=== PATIENT | male | born 1945 | race Two or more races ===

== ENCOUNTER 2021-10-15 10:27 | Inpatient (IN) | payer MEDICARE, MEDICAID ==
[~2021-10-15] VITALS: Ht 175.3 cm; Wt 86.2 kg
[~2021-10-15 10:27] MED LIST: INSULIN LISPRO (MEDIUM DOSE) 100 UNITS/ML SUBCUT SCH
[2021-10-15] MEDS ORDERED: HYDROCODONE/ACETAMINOPHEN 5/325MG TABLET PO STA (10:58)
[2021-10-15] MEDS ORDERED: KETOROLAC 30MG/ML VIAL IV STA (10:58)
[2021-10-15] MEDS ORDERED: SODIUM CHLORIDE 0.9% 1,000 ML IV ONE (11:00)
[2021-10-15] MEDS ORDERED: DEXAMETHASONE 10 MG/ML VIAL IV ONE (11:15)
[2021-10-15 11:45] LABS: CHLORIDE 103 mEq/L (98-107)
[2021-10-15 11:49] LABS: BASOPHILS % 0.1 % (0.0-2.0); EOSINOPHILS % 0.3 % (0.0-5.0); HEMATOCRIT. 40.5 % (42.0-52.0); HEMOGLOBIN. 12.6 g/dL (14.0-18.0); LYMPHOCYTES % 19.1 % (20.0-50.0); MEAN CORPUSCULAR HEMOGLOBIN 25.2 pg (28.0-32.0); MEAN PLATELET VOLUME 10.3 fl (7.4-10.4); MONOCYTES % 7.5 % (2.0-8.0); PLATELET 342 x1000/uL (130-400)
[2021-10-15 11:55] LABS: BETA HYDROXYBUTYRATE 3.7 mMol/L (0.0-0.3)
[2021-10-15] MEDS ORDERED: ACETAMINOPHEN 325MG TABLET PO ONE (12:00)
[2021-10-15 12:12] LABS: PHOSPHORUS 2.8 mg/dL (2.5-4.9)
[2021-10-15 12:54] LABS: BG BASE EXCESS -5.3 mmol/L (-2.0-2.0); BG CARBOXYHEMOGLOBIN 0.9 % (0.5-1.5); BG DEOXYHEMOGLOBIN 1.7 % (0.0-5.0); BG FRACTION INSPIRED OXYGEN 28; BG HCO3 ACT 19.3 mmol/L (22.0-26.0); BG METHEMOGLOBIN 0.3 % (0.0-1.5); BG OXYGEN SATURATION 98.3 % (92.0-98.5); BG OXYHEMOGLOBIN 97.1 % (94.0-97.0); BG PCO2 34.3 mmHg (35.0-45.0); BG PH 7.367 (7.350-7.450); BG PO2 117.2 mmHg (75.0-100.0); BG SAMPLE SITE RIGHT RADIAL; BG TOTAL HEMOGLOBIN 12.4 g/dL (12.0-18.0); BG VENT MODE NASAL CANNULA
[2021-10-15] MEDS ORDERED: DILTIAZEM HCL 5MG/ML 5ML VIAL IV ONE ×2 (13:45→15:00)
[2021-10-15 15:19] LABS: CLARITY URINE CLEAR (CLEAR); COLOR URINE YELLOW (YELLOW); KETONES URINE 1+ (NEGATIVE); LEUKOCYTE ESTERASE URINE NEGATIVE (NEGATIVE); NITRITE URINE NEGATIVE (NEGATIVE); OCCULT BLOOD URINE TRACE (NEGATIVE); PROTEIN URINE TRACE (NEGATIVE); SPECIFIC GRAVITY URINE 1.033 (1.005-1.030); UROBILINOGEN URINE 0.2 E.U./dL (0.2-1.0)
[2021-10-15] MEDS ORDERED: DILTIAZEM HCL 30MG TABLET PO ONE (16:30)
[2021-10-15] MEDS ORDERED: LORAZEPAM 2MG/ML CPJ IV PRN (21:00)
[2021-10-15] MEDS ORDERED: ONDANSETRON HCL 4MG/2ML INJ IV PRN (21:00)
[2021-10-15] MEDS ORDERED: ENOXAPARIN 40MG/0.4ML SYR SUBCUT SCH (21:00)
[2021-10-15] MEDS ORDERED: HYDROCODONE/ACETAMINOPHEN 5/325MG TABLET PO PRN (21:00)
[2021-10-15] MEDS ORDERED: MORPHINE SULFATE 2 MG/ML CPJ (NOT FOR IM USE) IV PRN (21:00)
[2021-10-15] MEDS ORDERED: AZITHROMYCIN 500MG/250ML 250 ML IV SCH (21:03)
[2021-10-15] MEDS ORDERED: CEFTRIAXONE 1 G PREMIX 50 ML IV SCH (21:04)
[2021-10-15] MEDS: SODIUM CHLORIDE 0.9% 1,000 ML IV SCH (21:15)
[2021-10-15] MEDS ORDERED: DILTIAZEM HCL 5MG/ML 5ML VIAL IV NR (21:45)
[2021-10-15] MEDS ORDERED: INSULIN LISPRO (MEDIUM DOSE) 100 UNITS/ML SUBCUT SCH (22:00)
[2021-10-15] MEDS ORDERED: DEXTROSE 50% WATER 50ML SYRINGE IV PRN ×2 (22:15→22:30)
[2021-10-15] MEDS: INSULIN LISPRO (MEDIUM DOSE) 100 UNITS/ML SUBCUT SCH (22:43)
[2021-10-16] MEDS ORDERED: INSULIN LISPRO 100 UNITS/ML SUBCUT NR (00:05)
[2021-10-16] MEDS ORDERED: DILTIAZEM HCL 125 MG in DEXTROSE 5% WATER 125 ML IV PRN (02:45)
[2021-10-16] MEDS ORDERED: SODIUM CHLORIDE 0.9% 1,000 ML IV SCH (07:45)
[2021-10-16] MEDS ORDERED: DILTIAZEM HCL 60MG TABLET PO SCH (08:00)
[2021-10-16] MEDS: BLOOD SUGAR DIAGNOSTIC STRIP TEST SCH ×4 (09:00→20:27)
[2021-10-16] MEDS: INSULIN LISPRO (MEDIUM DOSE) 100 UNITS/ML SUBCUT SCH ×4 (09:00→21:00)
[2021-10-16 10:05] LABS: *AMPHETAMINES SCREEN URINE NEGATIVE (NEGATIVE); *BARBITURATES SCREEN URINE NEGATIVE (NEGATIVE); *BENZODIAZEPINES SCREEN URINE NEGATIVE (NEGATIVE); *COCAINE SCREEN URINE NEGATIVE (NEGATIVE)
[2021-10-16 10:06] LABS: CANNABINOID URINE SCREEN NEGATIVE (NEGATIVE); METHADONE URINE SCREEN NEGATIVE (NEGATIVE); OPIATES URINE SCREEN PRESUMTIVE POSITIVE (NEGATIVE); PHENCYCLIDINE URINE SCREEN NEGATIVE (NEGATIVE)
[2021-10-16] MEDS: INSULIN LISPRO 100 UNITS/ML SUBCUT SCH ×3 (11:55→20:02)
[2021-10-16] MEDS ORDERED: NALOXONE HCL 0.4MG/ML VIAL IV PRN (12:45)
[2021-10-16] MEDS ORDERED: INSULIN GLARGINE UD 100 UNITS/ML SYR SUBCUT NR (13:30)
[2021-10-16] MEDS: DILTIAZEM HCL 30MG TABLET PO SCH ×2 (17:14→21:00)
[2021-10-16] MEDS: SODIUM CHLORIDE 0.9% 1,000 ML IV SCH (17:50)
[2021-10-16] MEDS ORDERED: CEFTRIAXONE 1,000 MG in DEXTROSE 5% WATER 50 ML IV SCH (20:00)
[2021-10-16 20:05] LABS: CHLORIDE 109 mEq/L (98-107)
[2021-10-16] MEDS: CEFTRIAXONE 1,000 MG in DEXTROSE 5% WATER 50 ML IV SCH (21:00)
[2021-10-16] MEDS ORDERED: AZITHROMYCIN 500 MG in DEXT 5% WATER 250 ML IV SCH (21:00)
[2021-10-16] MEDS: AZITHROMYCIN 500 MG in DEXT 5% WATER 250 ML IV SCH (21:00)
[2021-10-16] MEDS ORDERED: INSULIN GLARGINE UD 100 UNITS/ML SYR SUBCUT SCH (22:00)
[2021-10-17] VITALS (30 sets, daily range): BP systolic 74–163; BP diastolic 20–96
[2021-10-17] MEDS: BLOOD SUGAR DIAGNOSTIC STRIP TEST SCH ×4 (03:51→21:34)
[2021-10-17 06:30] LABS: BASOPHILS % 0.3 % (0.0-2.0); EOSINOPHILS % 0.3 % (0.0-5.0); HEMATOCRIT. 33.3 % (42.0-52.0); HEMOGLOBIN. 10.3 g/dL (14.0-18.0); LYMPHOCYTES % 31.3 % (20.0-50.0); MEAN CORPUSCULAR VOLUME 80.8 fL (80.0-94.0); MEAN PLATELET VOLUME 9.6 fl (7.4-10.4); MONOCYTES % 7.4 % (2.0-8.0); NEUTROPHILS % 60.7 % (40.0-76.0); PLATELET 358 x1000/uL (130-400); RED BLOOD CELL COUNT 4.12 mill/uL (4.7-6.1)
[2021-10-17] MEDS: INSULIN LISPRO 100 UNITS/ML SUBCUT SCH ×3 (06:30→17:19)
[2021-10-17] MEDS: INSULIN LISPRO (MEDIUM DOSE) 100 UNITS/ML SUBCUT SCH ×4 (07:08→21:00)
[2021-10-17 07:11] LABS: CHLORIDE 112 mEq/L (98-107)
[2021-10-17 07:23] LABS: CREATINE KINASE 150 IU/L (39-308)
[2021-10-17 07:26] LABS: CREATINE KINASE MB FRACTION 3.7 ng/mL (0.5-3.6)
[2021-10-17] MEDS ORDERED: DIGOXIN 500MCG/2ML AMP IV SCH (07:30)
[2021-10-17] MEDS: DILTIAZEM HCL 30MG TABLET PO SCH ×3 (10:00→17:17)
[2021-10-17] MEDS: INSULIN GLARGINE UD 100 UNITS/ML SYR SUBCUT SCH ×2 (10:00→23:08)
[2021-10-17] MEDS ORDERED: DIGOXIN 500MCG/2ML AMP IV NR (11:02)
[2021-10-17] MEDS ORDERED: PHENYLEPHRINE 50 MG in DEXT 5% WATER 245 ML IV PRN (11:30)
[2021-10-17] MEDS ORDERED: VANCOMYCIN 1 G PREMIX 200 ML IV SCH (12:30)
[2021-10-17] MEDS: SODIUM CHLORIDE 0.9% 1,000 ML IV SCH (13:30)
[2021-10-17] MEDS: MIDODRINE HCL 5MG TABLET PO SCH ×2 (14:30→17:17)
[2021-10-17] MEDS ORDERED: DILTIAZEM HCL 5MG/ML 5ML VIAL IV NR (14:37)
[2021-10-17] MEDS ORDERED: DILTIAZEM HCL 125 MG in DEXT 5% WATER 100 ML IV PRN (15:00)
[2021-10-17] MEDS ORDERED: GUAIFENESIN-DM 200MG-20MG/10ML UDC PO PRN (19:00)
[2021-10-17 19:03] LABS: HEMATOCRIT 33.4 % (42.0-52.0); HEMOGLOBIN 10.5 g/dL (14.0-18.0); MEAN CORPUSCULAR HEMOGLOBIN 25.5 pg (28.0-32.0); MEAN CORPUSCULAR VOLUME 80.8 fL (80.0-94.0); PLATELET 383 x1000/uL (130-400); RED BLOOD CELL COUNT 4.13 mill/uL (4.7-6.1); RED CELL DISTRIBUTION WIDTH 18.8 % (11.6-14.6)
[2021-10-17 19:12] LABS: INR 1.1
[2021-10-17] MEDS: ENOXAPARIN 60MG/0.6ML SYR SUBCUT SCH (21:34)
[2021-10-17] MEDS: CEFTRIAXONE 1,000 MG in DEXTROSE 5% WATER 50 ML IV SCH (22:32)
[2021-10-17] MEDS: VANCOMYCIN 750 MG PREMIX 150 ML IV SCH (23:24)
[2021-10-18] VITALS (82 sets, daily range): BP systolic 61–150; BP diastolic 29–110
[2021-10-18] MEDS ORDERED: DILTIAZEM HCL 60MG TABLET PO SCH
[2021-10-18] MEDS: AZITHROMYCIN 500 MG in DEXT 5% WATER 250 ML IV SCH ×2 (00:58→21:44)
[2021-10-18] MEDS ORDERED: IOHEXOL-350 100 ML BOTTLE ONE (04:24)
[2021-10-18] MEDS: BLOOD SUGAR DIAGNOSTIC STRIP TEST SCH ×4 (06:20→21:44)
[2021-10-18] MEDS: INSULIN LISPRO 100 UNITS/ML SUBCUT SCH (06:21)
[2021-10-18] MEDS: INSULIN LISPRO (MEDIUM DOSE) 100 UNITS/ML SUBCUT SCH ×4 (06:21→21:59)
[2021-10-18 06:28] LABS: BASOPHILS % 0.4 % (0.0-2.0); EOSINOPHILS % 1.2 % (0.0-5.0); HEMATOCRIT. 35.5 % (42.0-52.0); HEMOGLOBIN. 10.6 g/dL (14.0-18.0); LYMPHOCYTES % 20.4 % (20.0-50.0); MEAN CORPUSCULAR HEMOGLOBIN 24.2 pg (28.0-32.0); MONOCYTES % 8.3 % (2.0-8.0); NEUTROPHILS % 69.7 % (40.0-76.0); PLATELET 358 x1000/uL (130-400); RED BLOOD CELL COUNT 4.39 mill/uL (4.7-6.1); RED CELL DISTRIBUTION WIDTH 18.7 % (11.6-14.6)
[2021-10-18 07:16] LABS: CHLORIDE 106 mEq/L (98-107)
[2021-10-18 07:43] LABS: DIGOXIN 0.6 ng/mL (0.9-2.0)
[2021-10-18] MEDS: ENOXAPARIN 60MG/0.6ML SYR SUBCUT SCH ×2 (08:42→20:43)
[2021-10-18] MEDS: DEXAMETHASONE 10 MG/ML VIAL IV SCH (08:42)
[2021-10-18] MEDS: SODIUM CHLORIDE 0.9% 1,000 ML IV SCH (08:46)
[2021-10-18] MEDS: MIDODRINE HCL 5MG TABLET PO SCH ×3 (08:46→22:06)
[2021-10-18] MEDS: INSULIN GLARGINE UD 100 UNITS/ML SYR SUBCUT SCH ×3 (09:53→22:02)
[2021-10-18] MEDS: VANCOMYCIN 750 MG PREMIX 150 ML IV SCH (10:17)
[2021-10-18] MEDS: DILTIAZEM HCL 90MG TABLET PO SCH ×2 (12:24→17:04)
[2021-10-18 18:36] LABS: HEMATOCRIT 34.6 % (42.0-52.0); MEAN CORPUSCULAR VOLUME 82.1 fL (80.0-94.0); PLATELET 387 x1000/uL (130-400); RED BLOOD CELL COUNT 4.21 mill/uL (4.7-6.1); RED CELL DISTRIBUTION WIDTH 18.8 % (11.6-14.6)
[2021-10-18] MEDS: CEFTRIAXONE 1,000 MG in DEXTROSE 5% WATER 50 ML IV SCH (20:43)
[2021-10-19] VITALS (53 sets, daily range): BP systolic 76–153; BP diastolic 44–101
[2021-10-19] MEDS: BLOOD SUGAR DIAGNOSTIC STRIP TEST SCH ×4 (05:56→20:30)
[2021-10-19] MEDS: SODIUM CHLORIDE 0.9% 1,000 ML IV SCH (06:13)
[2021-10-19 06:15] LABS: BASOPHILS % 0.3 % (0.0-2.0); EOSINOPHILS % 0.1 % (0.0-5.0); HEMATOCRIT. 30.4 % (42.0-52.0); HEMOGLOBIN. 9.8 g/dL (14.0-18.0); LYMPHOCYTES % 11.3 % (20.0-50.0); MEAN CORPUSCULAR VOLUME 80.6 fL (80.0-94.0); MONOCYTES % 6.8 % (2.0-8.0); NEUTROPHILS % 81.5 % (40.0-76.0); RED BLOOD CELL COUNT 3.77 mill/uL (4.7-6.1); RED CELL DISTRIBUTION WIDTH 18.5 % (11.6-14.6)
[2021-10-19] MEDS: DILTIAZEM HCL 90MG TABLET PO SCH ×4 (06:15→18:53)
[2021-10-19] MEDS: MIDODRINE HCL 5MG TABLET PO SCH ×3 (06:15→18:53)
[2021-10-19] MEDS: INSULIN LISPRO (MEDIUM DOSE) 100 UNITS/ML SUBCUT SCH ×4 (06:19→20:33)
[2021-10-19 06:20] LABS: CHLORIDE 108 mEq/L (98-107)
[2021-10-19] MEDS: ENOXAPARIN 60MG/0.6ML SYR SUBCUT SCH ×2 (09:22→20:32)
[2021-10-19] MEDS: DEXAMETHASONE 10 MG/ML VIAL IV SCH (09:23)
[2021-10-19] MEDS: INSULIN GLARGINE UD 100 UNITS/ML SYR SUBCUT SCH ×2 (11:14→22:16)
[2021-10-19] MEDS: DIGOXIN 500MCG/2ML AMP IV SCH (18:54)
[2021-10-19 19:47] LABS: HEMATOCRIT 34.9 % (42.0-52.0); HEMOGLOBIN 10.7 g/dL (14.0-18.0); MEAN CORPUSCULAR HEMOGLOBIN 25.6 pg (28.0-32.0); MEAN CORPUSCULAR VOLUME 83.2 fL (80.0-94.0); PLATELET 401 x1000/uL (130-400); RED BLOOD CELL COUNT 4.19 mill/uL (4.7-6.1)
[2021-10-19] MEDS ORDERED: METOPROLOL TARTRATE 25MG TABLET PO SCH (21:00)
[2021-10-19] MEDS: CEFTRIAXONE 1,000 MG in DEXTROSE 5% WATER 50 ML IV SCH (21:23)
[2021-10-19] MEDS ORDERED: INSULIN GLARGINE UD 100 UNITS/ML SYR SUBCUT SCH (22:00)
[2021-10-19] MEDS: AZITHROMYCIN 500 MG in DEXT 5% WATER 250 ML IV SCH (22:16)
[2021-10-20] VITALS: BP 107/64
[2021-10-20] MEDS: MIDODRINE HCL 5MG TABLET PO SCH ×5 (00:55→23:25)
[2021-10-20] MEDS: SODIUM CHLORIDE 0.9% 1,000 ML IV SCH ×2 (00:57→21:24)
[2021-10-20 04:00] VITALS: BP 120/68
[2021-10-20] MEDS: DILTIAZEM HCL 90MG TABLET PO SCH ×5 (05:32→23:22)
[2021-10-20 08:00] VITALS: BP 119/65
[2021-10-20] MEDS: ENOXAPARIN 60MG/0.6ML SYR SUBCUT SCH ×2 (08:06→21:22)
[2021-10-20] MEDS: DEXAMETHASONE 10 MG/ML VIAL IV SCH (08:07)
[2021-10-20] MEDS: INSULIN LISPRO (MEDIUM DOSE) 100 UNITS/ML SUBCUT SCH ×4 (08:07→21:22)
[2021-10-20] MEDS: INSULIN GLARGINE UD 100 UNITS/ML SYR SUBCUT SCH ×2 (10:41→21:23)
[2021-10-20 12:00] VITALS: BP 119/63
[2021-10-20 13:25] LABS: BASOPHILS % 0.5 % (0.0-2.0); HEMATOCRIT. 33.2 % (42.0-52.0); HEMOGLOBIN. 10.3 g/dL (14.0-18.0); LYMPHOCYTES % 8.8 % (20.0-50.0); MEAN CORPUSCULAR VOLUME 80.4 fL (80.0-94.0); MEAN PLATELET VOLUME 9.4 fl (7.4-10.4); MONOCYTES % 2.7 % (2.0-8.0); PLATELET 490 x1000/uL (130-400); RED BLOOD CELL COUNT 4.13 mill/uL (4.7-6.1); RED CELL DISTRIBUTION WIDTH 18.3 % (11.6-14.6)
[2021-10-20 13:39] LABS: CHLORIDE 105 mEq/L (98-107)
[2021-10-20 14:00] LABS: DIGOXIN 0.7 ng/mL (0.9-2.0)
[2021-10-20 16:00] VITALS: BP 103/55
[2021-10-20] MEDS: DIGOXIN 500MCG/2ML AMP IV SCH (17:13)
[2021-10-20] MEDS ORDERED: DILT300C35 MT ×2 (18:01)
[2021-10-20] MEDS ORDERED: APIX5TAB MT (18:01)
[2021-10-20] MEDS ORDERED: INSU100I28 SQ (18:01)
[2021-10-20 20:00] VITALS: BP 120/60
[2021-10-21] VITALS: BP 102/50
[2021-10-21 04:00] VITALS: BP 135/77
[2021-10-21] MEDS: DILTIAZEM HCL 90MG TABLET PO SCH (06:00)
[2021-10-21] MEDS: MIDODRINE HCL 5MG TABLET PO SCH ×3 (06:00→17:58)
[2021-10-21] MEDS: INSULIN LISPRO (MEDIUM DOSE) 100 UNITS/ML SUBCUT SCH ×4 (07:40→21:24)
[2021-10-21 08:00] VITALS: BP 148/81
[2021-10-21] MEDS: DEXAMETHASONE 10 MG/ML VIAL IV SCH (08:36)
[2021-10-21] MEDS: ENOXAPARIN 60MG/0.6ML SYR SUBCUT SCH ×2 (08:36→21:25)
[2021-10-21] MEDS: INSULIN GLARGINE UD 100 UNITS/ML SYR SUBCUT SCH ×2 (09:37→21:25)
[2021-10-21 12:00] VITALS: BP 124/75
[2021-10-21] MEDS: DILTIAZEM HCL 60MG TABLET PO SCH ×2 (12:45→17:58)
[2021-10-21 16:00] VITALS: BP 122/60
[2021-10-21] MEDS: SODIUM CHLORIDE 0.9% 1,000 ML IV SCH (17:55)
[2021-10-21] MEDS: DIGOXIN 500MCG/2ML AMP IV SCH (17:58)
[2021-10-21 20:00] VITALS: BP 126/71
[2021-10-22] VITALS: BP 115/60
[2021-10-22] MEDS: MIDODRINE HCL 5MG TABLET PO SCH ×4 (00:22→18:14)
[2021-10-22] MEDS: DILTIAZEM HCL 60MG TABLET PO SCH ×3 (00:22→13:09)
[2021-10-22 04:00] VITALS: BP 124/64
[2021-10-22] MEDS: INSULIN LISPRO (MEDIUM DOSE) 100 UNITS/ML SUBCUT SCH ×5 (07:27→22:17)
[2021-10-22 08:00] VITALS: BP 104/63
[2021-10-22] MEDS: ENOXAPARIN 60MG/0.6ML SYR SUBCUT SCH (08:54)
[2021-10-22] MEDS: DEXAMETHASONE 10 MG/ML VIAL IV SCH (08:55)
[2021-10-22] MEDS: INSULIN GLARGINE UD 100 UNITS/ML SYR SUBCUT SCH ×2 (10:50→22:18)
[2021-10-22 12:00] VITALS: BP 117/75
[2021-10-22 16:00] VITALS: BP 118/58
[2021-10-22] MEDS: SODIUM CHLORIDE 0.9% 1,000 ML IV SCH (18:19)
[2021-10-22 20:00] VITALS: BP 126/79
[2021-10-22] MEDS: ENOXAPARIN 100MG/ML SYR SUBCUT SCH (22:16)
[2021-10-23] VITALS: BP 141/57
[2021-10-23 04:00] VITALS: BP 107/56
[2021-10-23] MEDS: MIDODRINE HCL 5MG TABLET PO SCH ×4 (04:58→18:00)
[2021-10-23] MEDS: INSULIN LISPRO (MEDIUM DOSE) 100 UNITS/ML SUBCUT SCH ×4 (07:40→21:34)
[2021-10-23 08:00] VITALS: BP 108/55
[2021-10-23] MEDS: INSULIN GLARGINE UD 100 UNITS/ML SYR SUBCUT SCH ×2 (10:00→22:34)
[2021-10-23 12:00] VITALS: BP 134/84
[2021-10-23 13:17] LABS: CHLORIDE 106 mEq/L (98-107)
[2021-10-23] MEDS: DEXAMETHASONE 10 MG/ML VIAL IV SCH (13:39)
[2021-10-23] MEDS: ENOXAPARIN 100MG/ML SYR SUBCUT SCH ×2 (13:40→20:47)
[2021-10-23] MEDS: SODIUM CHLORIDE 0.9% 1,000 ML IV SCH (13:41)
[2021-10-23 16:00] VITALS: BP 135/81
[2021-10-23 20:00] VITALS: BP 117/65
[2021-10-24] VITALS: BP 125/71
[2021-10-24] MEDS: MIDODRINE HCL 5MG TABLET PO SCH ×4 (00:18→17:57)
[2021-10-24 04:00] VITALS: BP 91/58
[2021-10-24] MEDS: SODIUM CHLORIDE 0.9% 1,000 ML IV SCH (05:19)
[2021-10-24] MEDS: INSULIN LISPRO (MEDIUM DOSE) 100 UNITS/ML SUBCUT SCH ×3 (05:41→21:24)
[2021-10-24 08:00] VITALS: BP 117/67
[2021-10-24 08:13] LABS: CHLORIDE 107 mEq/L (98-107)
[2021-10-24 08:25] LABS: BASOPHILS % 0.1 % (0.0-2.0); EOSINOPHILS % 0.2 % (0.0-5.0); HEMATOCRIT. 34.4 % (42.0-52.0); LYMPHOCYTES % 27.4 % (20.0-50.0); MEAN CORPUSCULAR HEMOGLOBIN 25.8 pg (28.0-32.0); MEAN CORPUSCULAR VOLUME 80.7 fL (80.0-94.0); MEAN PLATELET VOLUME 9.2 fl (7.4-10.4); MONOCYTES % 11.9 % (2.0-8.0); NEUTROPHILS % 60.4 % (40.0-76.0); PLATELET 443 x1000/uL (130-400); RED BLOOD CELL COUNT 4.26 mill/uL (4.7-6.1); RED CELL DISTRIBUTION WIDTH 18.1 % (11.6-14.6)
[2021-10-24] MEDS: DEXAMETHASONE 10 MG/ML VIAL IV SCH (09:46)
[2021-10-24] MEDS: ENOXAPARIN 100MG/ML SYR SUBCUT SCH ×2 (09:47→21:23)
[2021-10-24] MEDS: INSULIN GLARGINE UD 100 UNITS/ML SYR SUBCUT SCH ×3 (09:49→22:06)
[2021-10-24 12:00] VITALS: BP 117/78
[2021-10-24 16:00] VITALS: BP 132/84
[2021-10-24] MEDS ORDERED: SOTALOL HCL 80MG TABLET PO NR (18:30)
[2021-10-24 20:00] VITALS: BP 109/73
[2021-10-24] MEDS: GABAPENTIN 100MG CAPSULE PO SCH (22:05)
[2021-10-25] VITALS: BP 110/63
[2021-10-25] MEDS: MIDODRINE HCL 5MG TABLET PO SCH ×4 (00:17→17:22)
[2021-10-25] MEDS ORDERED: SOTALOL HCL 80MG TABLET PO NR ×2 (02:30→10:30)
[2021-10-25] MEDS: ACETAMINOPHEN 650MG/20.3ML UDC GT PRN (02:53)
[2021-10-25] MEDS: SODIUM CHLORIDE 0.9% 1,000 ML IV SCH ×2 (02:55→20:35)
[2021-10-25 04:00] VITALS: BP 128/65
[2021-10-25] MEDS: GABAPENTIN 100MG CAPSULE PO SCH ×3 (06:00→20:30)
[2021-10-25] MEDS: INSULIN LISPRO (MEDIUM DOSE) 100 UNITS/ML SUBCUT SCH ×4 (06:07→20:34)
[2021-10-25 08:00] VITALS: BP 95/49
[2021-10-25] MEDS: INSULIN GLARGINE UD 100 UNITS/ML SYR SUBCUT SCH ×2 (10:00→22:21)
[2021-10-25] MEDS: DEXAMETHASONE 10 MG/ML VIAL IV SCH (10:18)
[2021-10-25] MEDS: ENOXAPARIN 100MG/ML SYR SUBCUT SCH (10:18)
[2021-10-25] MEDS: SOTALOL HCL 80MG TABLET PO SCH ×2 (10:30→20:30)
[2021-10-25 12:14] VITALS: BP 90/46
[2021-10-25 16:00] VITALS: BP 107/46
[2021-10-25 20:00] VITALS: BP 95/42
[2021-10-25] MEDS: APIXABAN 5 MG TABLET PO SCH (20:30)
[2021-10-26 00:05] VITALS: BP 113/53
[2021-10-26] MEDS: MIDODRINE HCL 5MG TABLET PO SCH ×5 (00:11→23:59)
[2021-10-26 04:00] VITALS: BP 98/46
[2021-10-26] MEDS: GABAPENTIN 100MG CAPSULE PO SCH ×3 (05:52→21:21)
[2021-10-26] MEDS: INSULIN LISPRO (MEDIUM DOSE) 100 UNITS/ML SUBCUT SCH ×4 (05:55→21:00)
[2021-10-26 07:56] VITALS: BP 108/70
[2021-10-26] MEDS: APIXABAN 5 MG TABLET PO SCH ×2 (08:12→21:21)
[2021-10-26] MEDS: DEXAMETHASONE 10 MG/ML VIAL IV SCH (08:14)
[2021-10-26] MEDS: SOTALOL HCL 80MG TABLET PO SCH ×2 (08:14→21:00)
[2021-10-26] MEDS: INSULIN GLARGINE UD 100 UNITS/ML SYR SUBCUT SCH ×2 (09:45→21:30)
[2021-10-26 12:00] VITALS: BP 130/61
[2021-10-26 16:20] VITALS: BP 106/60
[2021-10-26] MEDS: SODIUM CHLORIDE 0.9% 1,000 ML IV SCH (17:15)
[2021-10-26 20:02] VITALS: BP 105/51
[2021-10-27 00:05] VITALS: BP 100/50
[2021-10-27 04:00] VITALS: BP 116/46
[2021-10-27] MEDS: GABAPENTIN 100MG CAPSULE PO SCH ×3 (05:41→21:08)
[2021-10-27] MEDS: MIDODRINE HCL 5MG TABLET PO SCH ×3 (05:41→17:08)
[2021-10-27] MEDS: INSULIN LISPRO (MEDIUM DOSE) 100 UNITS/ML SUBCUT SCH ×4 (05:44→21:09)
[2021-10-27 07:29] VITALS: BP 128/55
[2021-10-27] MEDS: DEXAMETHASONE 10 MG/ML VIAL IV SCH (08:10)
[2021-10-27] MEDS: SOTALOL HCL 80MG TABLET PO SCH ×2 (08:10→21:00)
[2021-10-27] MEDS: APIXABAN 5 MG TABLET PO SCH ×2 (08:31→21:08)
[2021-10-27] MEDS: INSULIN GLARGINE UD 100 UNITS/ML SYR SUBCUT SCH ×2 (09:53→21:18)
[2021-10-27] MEDS: SODIUM CHLORIDE 0.9% 1,000 ML IV SCH (11:34)
[2021-10-27 11:35] VITALS: BP 121/38
[2021-10-27 15:30] VITALS: BP 112/56
[2021-10-27 20:00] VITALS: BP 108/57
[2021-10-28] VITALS: BP 114/57
[2021-10-28 04:00] VITALS: BP 118/52
[2021-10-28] MEDS: MIDODRINE HCL 5MG TABLET PO SCH ×4 (06:00→17:09)
[2021-10-28] MEDS: GABAPENTIN 100MG CAPSULE PO SCH ×3 (06:12→20:12)
[2021-10-28 08:00] VITALS: BP 114/65
[2021-10-28] MEDS: APIXABAN 5 MG TABLET PO SCH ×2 (08:46→20:11)
[2021-10-28] MEDS: SOTALOL HCL 80MG TABLET PO SCH ×2 (08:51→20:06)
[2021-10-28] MEDS: INSULIN LISPRO (MEDIUM DOSE) 100 UNITS/ML SUBCUT SCH ×4 (08:56→20:12)
[2021-10-28] MEDS: DEXAMETHASONE 10 MG/ML VIAL IV SCH (08:58)
[2021-10-28] MEDS: SODIUM CHLORIDE 0.9% 1,000 ML IV SCH (09:02)
[2021-10-28 12:00] VITALS: BP 92/48
[2021-10-28] MEDS: INSULIN GLARGINE UD 100 UNITS/ML SYR SUBCUT SCH ×2 (12:36→20:59)
[2021-10-28 16:00] VITALS: BP 97/48
[2021-10-28 20:00] VITALS: BP 98/58
[2021-10-29] VITALS: BP 116/50
[2021-10-29 04:00] VITALS: BP 118/48
[2021-10-29] MEDS: MIDODRINE HCL 5MG TABLET PO SCH ×4 (06:00→20:16)
[2021-10-29] MEDS: SODIUM CHLORIDE 0.9% 1,000 ML IV SCH ×2 (06:00→16:06)
[2021-10-29] MEDS: GABAPENTIN 100MG CAPSULE PO SCH ×3 (06:52→20:10)
[2021-10-29 08:00] VITALS: BP 126/58
[2021-10-29] MEDS: DEXAMETHASONE 10 MG/ML VIAL IV SCH (08:06)
[2021-10-29] MEDS: SOTALOL HCL 80MG TABLET PO SCH ×2 (08:06→20:15)
[2021-10-29] MEDS: INSULIN LISPRO (MEDIUM DOSE) 100 UNITS/ML SUBCUT SCH ×4 (08:07→20:11)
[2021-10-29] MEDS: APIXABAN 5 MG TABLET PO SCH ×2 (08:14→20:10)
[2021-10-29] MEDS: INSULIN GLARGINE UD 100 UNITS/ML SYR SUBCUT SCH (11:34)
[2021-10-29] MEDS: ACETAMINOPHEN 650MG/20.3ML UDC GT PRN (11:39)
[2021-10-29 12:00] VITALS: BP 94/74
[2021-10-29 16:00] VITALS: BP 98/64
[2021-10-29 20:00] VITALS: BP 113/56
[2021-10-29] MEDS ORDERED: INSULIN GLARGINE UD 100 UNITS/ML SYR SUBCUT SCH (22:00)
[2021-10-30] VITALS: BP 102/50
[2021-10-30] MEDS: MIDODRINE HCL 5MG TABLET PO SCH ×3 (06:00→21:47)
[2021-10-30] MEDS: GABAPENTIN 100MG CAPSULE PO SCH ×3 (06:16→21:45)
[2021-10-30 07:02] LABS: BASOPHILS % 0.8 % (0.0-2.0); EOSINOPHILS % 0.6 % (0.0-5.0); HEMATOCRIT. 29.2 % (42.0-52.0); HEMOGLOBIN. 9.5 g/dL (14.0-18.0); LYMPHOCYTES % 25.6 % (20.0-50.0); MEAN CORPUSCULAR HEMOGLOBIN 26.7 pg (28.0-32.0); MEAN CORPUSCULAR VOLUME 82.1 fL (80.0-94.0); MEAN PLATELET VOLUME 9.9 fl (7.4-10.4); MONOCYTES % 6.5 % (2.0-8.0); NEUTROPHILS % 66.5 % (40.0-76.0); PLATELET 203 x1000/uL (130-400); RED BLOOD CELL COUNT 3.55 mill/uL (4.7-6.1); RED CELL DISTRIBUTION WIDTH 19.3 % (11.6-14.6)
[2021-10-30 07:15] LABS: CHLORIDE 105 mEq/L (98-107)
[2021-10-30 08:00] VITALS: BP 133/82
[2021-10-30] MEDS: INSULIN LISPRO (MEDIUM DOSE) 100 UNITS/ML SUBCUT SCH ×4 (08:10→21:45)
[2021-10-30] MEDS: APIXABAN 5 MG TABLET PO SCH ×2 (08:12→21:45)
[2021-10-30] MEDS: SOTALOL HCL 80MG TABLET PO SCH ×2 (08:12→21:00)
[2021-10-30] MEDS: DEXAMETHASONE 10 MG/ML VIAL IV SCH (08:13)
[2021-10-30] MEDS: ACETAMINOPHEN 650MG/20.3ML UDC GT PRN ×2 (11:52→21:57)
[2021-10-30 12:00] VITALS: BP 109/74
[2021-10-30] MEDS: INSULIN GLARGINE UD 100 UNITS/ML SYR SUBCUT SCH ×2 (12:05→21:46)
[2021-10-30 16:00] VITALS: BP 106/59
[2021-10-30] MEDS: SODIUM CHLORIDE 0.9% 1,000 ML IV SCH (19:13)
[2021-10-30 20:00] VITALS: BP 111/51
[2021-10-31] VITALS: BP 104/45
[2021-10-31 04:00] VITALS: BP 112/48
[2021-10-31] MEDS: MIDODRINE HCL 5MG TABLET PO SCH ×3 (06:00→21:31)
[2021-10-31] MEDS: GABAPENTIN 100MG CAPSULE PO SCH ×3 (06:29→21:38)
[2021-10-31] MEDS: INSULIN LISPRO (MEDIUM DOSE) 100 UNITS/ML SUBCUT SCH ×4 (07:55→21:34)
[2021-10-31 08:00] VITALS: BP 130/41
[2021-10-31] MEDS: SOTALOL HCL 80MG TABLET PO SCH ×2 (08:56→21:00)
[2021-10-31] MEDS: DEXAMETHASONE 10 MG/ML VIAL IV SCH (09:23)
[2021-10-31] MEDS: APIXABAN 5 MG TABLET PO SCH ×2 (09:23→21:37)
[2021-10-31] MEDS: INSULIN GLARGINE UD 100 UNITS/ML SYR SUBCUT SCH ×2 (09:40→21:35)
[2021-10-31 12:00] VITALS: BP 131/86
[2021-10-31 16:00] VITALS: BP 114/53
[2021-10-31] MEDS: SODIUM CHLORIDE 0.9% 1,000 ML IV SCH (16:15)
[2021-10-31 20:00] VITALS: BP 107/50
[2021-11-01] VITALS: BP 120/52
[2021-11-01] MEDS: ACETAMINOPHEN 650MG/20.3ML UDC GT PRN (03:48)
[2021-11-01 04:00] VITALS: BP 141/67
[2021-11-01] MEDS: MIDODRINE HCL 5MG TABLET PO SCH ×3 (05:52→21:24)
[2021-11-01] MEDS: GABAPENTIN 100MG CAPSULE PO SCH ×3 (06:08→21:23)
[2021-11-01 07:59] VITALS: BP 145/55
[2021-11-01] MEDS: DEXAMETHASONE 10 MG/ML VIAL IV SCH (08:16)
[2021-11-01] MEDS: APIXABAN 5 MG TABLET PO SCH ×2 (08:16→21:22)
[2021-11-01] MEDS: INSULIN LISPRO (MEDIUM DOSE) 100 UNITS/ML SUBCUT SCH ×4 (08:17→21:25)
[2021-11-01] MEDS: SOTALOL HCL 80MG TABLET PO SCH ×2 (08:18→21:00)
[2021-11-01 08:20] LABS: BASOPHILS % 0.3 % (0.0-2.0); EOSINOPHILS % 0.3 % (0.0-5.0); HEMATOCRIT. 31.8 % (42.0-52.0); HEMOGLOBIN. 10.2 g/dL (14.0-18.0); LYMPHOCYTES % 24.2 % (20.0-50.0); MEAN CORPUSCULAR HEMOGLOBIN 26.3 pg (28.0-32.0); MEAN CORPUSCULAR VOLUME 81.9 fL (80.0-94.0); MEAN PLATELET VOLUME 9.8 fl (7.4-10.4); MONOCYTES % 6.1 % (2.0-8.0); NEUTROPHILS % 69.1 % (40.0-76.0); PLATELET 201 x1000/uL (130-400); RED BLOOD CELL COUNT 3.89 mill/uL (4.7-6.1); RED CELL DISTRIBUTION WIDTH 19.6 % (11.6-14.6)
[2021-11-01 08:40] LABS: CHLORIDE 103 mEq/L (98-107)
[2021-11-01] MEDS: INSULIN GLARGINE UD 100 UNITS/ML SYR SUBCUT SCH ×2 (09:58→21:25)
[2021-11-01 12:03] VITALS: BP 137/61
[2021-11-01] MEDS ORDERED: ERGOCALCIFEROL 50000UNITS CAPSULE PO SCH (13:00)
[2021-11-01 15:45] VITALS: BP 142/63
[2021-11-01 20:00] VITALS: BP 118/49
[2021-11-02 04:00] VITALS: BP 142/65
[2021-11-02] MEDS: GABAPENTIN 100MG CAPSULE PO SCH (05:55)
[2021-11-02] MEDS: MIDODRINE HCL 5MG TABLET PO SCH (05:56)
[2021-11-02] MEDS: INSULIN LISPRO (MEDIUM DOSE) 100 UNITS/ML SUBCUT SCH (07:17)
[2021-11-02 07:53] VITALS: BP 141/42
[2021-11-02] MEDS: APIXABAN 5 MG TABLET PO SCH (08:31)
[2021-11-02] MEDS: DEXAMETHASONE 10 MG/ML VIAL IV SCH (08:31)
[2021-11-02] MEDS: SOTALOL HCL 80MG TABLET PO SCH (08:32)
[2021-11-02] MEDS ORDERED: MULTIVITAMINS,THER W-MINERALS TABLET PO SCH (09:00)
[2021-11-02 10:59] VITALS: BP 141/42
== END 2021-11-02 11:25 | disposition home or self-care (01) | DRG 871 ==
LOC: ER 10:27 → MICUSO 16:44 → ENRESERV 20:02 → CANRESERV 20:02 → SUPCPDRO 20:59 → ER 10-16 02:13 → EDBEDREQSVC 10-16 02:43 → MICUSO 10-17 17:05 → 7WST 10-19 17:45
PROVIDERS: ADMIT Internal Medicine Nephrology; ATTEND Internal Medicine Nephrology
PROC: 0BH17EZ Insertion of Endotracheal Airway into Trachea, Via Natural or Artificial Opening (ICD-10-PCS; principal; 2021-10-17)
PROC: 5A1935Z Respiratory Ventilation, Less than 24 Consecutive Hours (ICD-10-PCS; 2021-10-17)
DX: A41.89 Other specified sepsis (principal); U07.1 COVID-19; J12.82 Pneumonia due to coronavirus disease 2019; J96.01 Acute respiratory failure with hypoxia; N39.0 Urinary tract infection, site not specified; I48.92 Unspecified atrial flutter; J44.0 Chronic obstructive pulmonary disease with (acute) lower respiratory infection; I48.20 Chronic atrial fibrillation, unspecified; E11.65 Type 2 diabetes mellitus with hyperglycemia; D64.9 Anemia, unspecified; B96.89 Other specified bacterial agents as the cause of diseases classified elsewhere; I10 Essential (primary) hypertension; Z79.01 Long term (current) use of anticoagulants; Z87.891 Personal history of nicotine dependence; Z79.4 Long term (current) use of insulin
CPT/HCPCS: 36415; 36600; 71045; 71275; 80048; 80053; 80162; 81003; 82010; 82375; 82550; 82553; 82728; 82805; 82962; 83036; 83605; 83615; 83735; 83880; 83930; 84100; 84439; 84443; 84484; 85025; 85027; 85379; 86140; 87426; 87635; 93005; 99285; J0456; J0696; J1100; J1160; J1650; J1815; J1885; J2370; J3370; J3490; J7030; J7060; Q9967; U0003; U0005